=== PATIENT | male | born 1950 | race Caucasian/White ===

== ENCOUNTER 2019-08-09 06:00 | Day surgery (SDC) | payer MEDICARE ==
[2019-08-09] MEDS ORDERED: TROP 1%/CYCLOPEN 1%/PHENYL 2% DROPS ONE (10:40)
[2019-08-09] MEDS ORDERED: PROPARACAINE 0.5% OPHTH SOL 15 ML BTTL ONE (10:40)
[2019-08-09] MEDS ORDERED: MIDAZOLAM INJ 2 MG/2 ML VIAL ONE (11:33)
[2019-08-09] MEDS ORDERED: LIDOCAINE 1% MPF 2 ML VIAL INJ ONE (11:44)
[2019-08-09] MEDS ORDERED: fentaNYL CITRATE INJ 50 MCG/ML AMP ONE (11:50)
[2019-08-09] MEDS ORDERED: PROPOFOL 200 MG/20 ML VIAL IV ONE (11:54)
[2019-08-09] MEDS ORDERED: TOBRAMYCIN SULF 0.3 % OPHT SOL 1 DROP RIGHT_EYE ONE (12:04)
[2019-08-09] MEDS ORDERED: DEXAMETHASONE 0.1% OPHTH SOL 1 DROP RIGHT_EYE ONE (12:04)
[2019-08-09] MEDS ORDERED: BRIMONIDINE 0.2% OPHTH DROPS RIGHT_EYE ONE (12:04)
[2019-08-09] MEDS ORDERED: MOXIFLOXACIN HCL (OPHTH) 1 DROP DROPS RIGHT_EYE ONE (12:04)
== END 2019-08-09 12:55 | disposition home or self-care (01) ==
LOC: AMB 06:00
PROVIDERS: ATTEND Ophthalmology
DX: H25.11 Age-related nuclear cataract, right eye (principal)
CPT/HCPCS: 00142; 66984; J2250; J3010; J3490

== ENCOUNTER 2019-08-23 05:31 | Day surgery (SDC) | payer MEDICARE ==
[2019-08-23] MEDS ORDERED: TROP 1%/CYCLOPEN 1%/PHENYL 2% DROPS ONE (05:49)
[2019-08-23] MEDS ORDERED: PROPARACAINE 0.5% OPHTH SOL 15 ML BTTL ONE (05:49)
[2019-08-23] MEDS ORDERED: MOXIFLOXACIN HCL (OPHTH) 1 DROP DROPS ONE (05:49)
[2019-08-23] MEDS ORDERED: MIDAZOLAM INJ 2 MG/2 ML VIAL ONE (06:44)
[2019-08-23] MEDS ORDERED: PROPOFOL 200 MG/20 ML VIAL IV ONE (07:02)
[2019-08-23] MEDS ORDERED: PROPARACAINE 0.5% OPHTH SOL 15 ML BTTL LEFT_EYE ONE (07:07)
[2019-08-23] MEDS ORDERED: LIDOCAINE 1% MPF 2 ML VIAL INJ ONE (07:21)
[2019-08-23] MEDS ORDERED: MOXIFLOXACIN HCL (OPHTH) 1 DROP DROPS LEFT_EYE ONE ×2 (07:23→07:39)
[2019-08-23] MEDS ORDERED: DEXAMETHASONE 0.1% OPHTH SOL 1 DROP LEFT_EYE ONE ×2 (07:24→07:39)
[2019-08-23] MEDS ORDERED: BRIMONIDINE 0.2% OPHTH DROPS LEFT_EYE ONE ×2 (07:25→07:39)
[2019-08-23] MEDS ORDERED: TOBRAMYCIN SULF 0.3 % OPHT SOL 1 DROP LEFT_EYE ONE ×2 (07:25→07:39)
== END 2019-08-23 08:38 | disposition home or self-care (01) ==
LOC: AMB 05:31
PROVIDERS: ATTEND Ophthalmology
DX: H25.12 Age-related nuclear cataract, left eye (principal)
CPT/HCPCS: 00142; 66984; J2250; J3490

== ENCOUNTER 2020-03-20 10:57 | Emergency (ER) | payer MEDICARE ==
[2020-03-20] MEDS ORDERED: ONDANSETRON INJ 4 MG/2 ML VIAL IV ONE (11:15)
[2020-03-20] MEDS ORDERED: ASPIRIN TABLET 325 MG TAB PO ONE (11:15)
[2020-03-20] MEDS ORDERED: SODIUM CHLORIDE 0.9% (FLUSH) 10 ML SYG IV PRN (11:15)
[2020-03-20 11:35] VITALS: TEMP 98
--- NOTE | 2020-03-20 11:36 | RAD ---
EXAM DESCRIPTION: Chest,1 View CLINICAL HISTORY: 69 years Male, chest pain COMPARISON: Previous chest x-ray March 01, 2019 TECHNIQUE: AP portable chest. FINDINGS: Heart size is normal with normal pulmonary vascularity. Emphysematous hyperexpansion of the upper lobes. Otherwise no consolidating infiltrate. No pulmonary mass or worrisome nodule. No pneumothorax or pleural effusion. Spurring in the T-spine. Bones are otherwise unremarkable. IMPRESSION: No acute process is identified in the chest. Electronically signed by: Phoenix Swift MD 03/20/2020 11:35 AM CDT
--- NOTE | 2020-03-20 12:14 | ED.PDOC ---
History of Present Illness - General Chief Complaint: Chest Pain/WI Stated Complaint: chest pain last night Time Seen by Provider: 03/20/20 11:15 Source: patient, RN notes reviewed, Vital Signs reviewed Exam Limitations: no limitations - History of Present Illness Initial Comments: This is a 69-year-old male with history of rheumatic heart disease presenting to the emergency department with episode of chest pain that began last night around 1700. He states he was sitting in a recliner and had severe retrosternal chest pain that radiated to his back into bilateral arms. The pain lasted approximately 15 to 20 minutes and had 3 waves of severe pain, and then resolve spontaneously. No previous history of ACS/WI. Has never been to the [employer] [facility] or had stents placed. He states he had a similar episode of pain 3 weeks ago that also resolved spontaneously. 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 He denies any chest pain with walking, but states for the past several years he has had some exertional dyspnea, although this has not changed over the past several weeks. No recent travel, no sick contacts, no COVID-19 contacts, no cough or fever. Allergies/Adverse Reactions: Allergies NO KNOWN ALLERGY Allergy (Verified 03/20/20 11:24) Home Medications: Ambulatory Orders Cetirizine HCl [Zyrtec Allergy] 10 mg PO PRN 08/23/19 Naproxen Sodium [Aleve] 220 mg PO PRN 08/23/19 Review of Systems - Review of Systems Constitutional: Denies: fever, weakness EENTM: Denies: ear pain, nose congestion, throat pain Respiratory: States: short of breath. Denies: cough, orthopnea, stridor, wheezing Cardiology: States: chest pain. Denies: edema, palpitations, syncope Gastrointestinal/Abdominal: Denies: abdominal pain, constipation, diarrhea, nausea, vomiting Genitourinary: Denies: dysuria, hematuria Musculoskeletal: Denies: back pain, joint pain, muscle stiffness, neck pain Skin: Denies: change in color, dryness, lesions, rash Neurological: Denies: headache, paresthesia, seizure Endocrine: States: no symptoms reported Hematologic/Lymphatic: States: no symptoms reported Past Medical History (General) - Patient Medical History Hx Congestive Heart Failure: No Hx Diabetes: No Hx MRSA: No - Vaccination History Hx Tetanus, Diphtheria Vaccination: No Hx Influenza Vaccination: No Hx Pneumococcal Vaccination: No - Activities of Daily Living Hospice Agency (if applicable):: None - Female History Patient is a Female of Child Bearing Age (10 -59 yrs old): No - Triage Comment ED Triage Comment: pt voices he had an episode of chest pain last night that resolved after 30 minutes and voices that his doctor urged him to come be seen this morning. pt denies any active chest pain at this time. skin color appears pink, no diaphoresis. all peripheral pulses present and palpable. Family Medical History - Family History Mother Living Status: Physical Exam - Physical Exam General Appearance: Alert, Comfortable, No apparent distress Eyes, Ears, Nose, Throat Exam: PERRL/EOMI, normal ENT inspection, TMs normal Neck: full range of motion, supple, normal inspection Respiratory: chest non-tender, lungs clear, normal breath sounds, no respiratory distress, no accessory muscle use Cardiovascular/Chest: normal peripheral pulses, no edema, no gallop, no JVD, systolic murmur, extra beats Peripheral Pulses: radial,right: 2+, radial,left: 2+, dorsalis pedis,right: 2+, dorsalis pedis,left: 2+ Gastrointestinal/Abdominal: non tender, soft Extremity: normal range of motion, non-tender, normal inspection Neurologic: no motor/sensory deficits, alert, normal mood/affect, oriented x 3 Skin Exam: normal color, warm/dry Progress - Progress Progress: 03/20/20 11:58 Rechecked. Remains pain free. Discussed elevated troponin and need for transfer. Pt and agree with plan. 03/20/20 12:[address] Nolasco at [facility] ED. Will accept as transfer. DDX: ACS/WI, GERD, CHF, low suspicion for aortic dissection MDM: Patient presenting with retrosternal chest pain radiating to the back and arms, single episode yesterday lasting approximately 15 minutes. EKG with T wave inversions in the inferior and lateral leads and frequent PVCs. No previous EKGs for comparison. Troponin is elevated at 0.11, concern for NSTEMI. Patient is pain-free with reassuring vital signs at this time. He was given aspirin in the emergency department, will give Lovenox prior to transfer. There is no cardiology available at this facility, so he will need to be transferred to a facility with cardiology. Patient requested [facility] in [place] DO Smita Nelson #[id number] 03/20/20 12:28 - Results/Orders Results/Orders: EKG interpreted by me at 1101. Sinus rhythm with first-degree AV block and frequent PVCs. Rate of 71. Normal axis, T wave inversions in the inferior and lateral leads, no ST segment elevations or depressions 03/20/20 11:15 Sodium Chloride 0.9% (Flush) [Saline Flush Syringe] 10 ml IV PRN PRN 03/20/20 11:16 IV Care:Saline Lock per Protoc QSHIFT Telemetry .ONCE EKG Stat Pulse Ox Stat Laboratory Results - last 24 hr 03/20/20 03/20/20 03/20/20 11:15 11:15 11:15 WBC 6.6 RBC 5.94 Hgb 17.5 Hct 52.3 H MCV 88.0 MCH 29.4 MCHC 33.5 RDW 14.1 Plt Count 180 MPV 7.5 Absolute Neuts (auto) 4.20 Absolute Lymphs (auto) 1.40 Absolute Monos (auto) 0.70 Absolute Eos (auto) 0.20 Absolute Basos (auto) 0.00 Neutrophils % 64.0 Lymphocytes % 21.3 Monocytes % 10.8 H Eosinophils % 3.1 Basophils % 0.8 Sodium 138 Potassium 4.0 Chloride 106 Carbon Dioxide 24 Anion Gap 12.0 BUN 21 H Creatinine 0.97 BUN/Creatinine Ratio 21.6 H Random Glucose 110 H Serum Osmolality 279.3 Calcium 8.5 Total Bilirubin 0.9 AST 26 ALT 26 Alkaline Phosphatase 65 Troponin I 0.11 H* B-Natriuretic Peptide Serum Total Protein 7.1 Albumin 3.7 Globulin 3.4 Albumin/Globulin Ratio 1.1 03/20/20 11:15 WBC RBC Hgb Hct MCV MCH MCHC RDW Plt Count MPV Absolute Neuts (auto) Absolute Lymphs (auto) Absolute Monos (auto) Absolute Eos (auto) Absolute Basos (auto) Neutrophils % Lymphocytes % Monocytes % Eosinophils % Basophils % Sodium Potassium Chloride Carbon Dioxide Anion Gap BUN Creatinine BUN/Creatinine Ratio Random Glucose Serum Osmolality Calcium Total Bilirubin AST ALT Alkaline Phosphatase Troponin I B-Natriuretic Peptide 110.0 H Serum Total Protein Albumin Globulin Albumin/Globulin Ratio EXAM DESCRIPTION: Chest,1 View CLINICAL HISTORY: 69 years Male, chest pain COMPARISON: Previous chest x-ray March 01, 2019 TECHNIQUE: AP portable chest. FINDINGS: Heart size is normal with normal pulmonary vascularity. Emphysematous hyperexpansion of the upper lobes. Otherwise no consolidating infiltrate. No pulmonary mass or worrisome nodule. No pneumothorax or pleural effusion. Spurring in the T-spine. Bones are otherwise unremarkable. IMPRESSION: No acute process is identified in the chest. Electronically signed by: Phoenix Swift MD 03/20/2020 11:35 Departure - Departure Clinical Impression: Acute chest pain, NSTEMI (non-ST elevated myocardial infarction), Abnormal electrocardiogram [ECG] [EKG] Time of Disposition: 12:20 Disposition: Transfer to Hospital Condition: Fair Departure Forms: ED Discharge - Pt. Copy, Patient Portal Self Enrollment Instructions: DI for Chest Pain Referrals: Eduardo Cheek MD [Primary Care Provider] - 1-2 Weeks Home Medications: Ambulatory Orders Cetirizine HCl [Zyrtec Allergy] 10 mg PO PRN 08/23/19 Naproxen Sodium [Aleve] 220 mg PO PRN 08/23/19
[2020-03-20] MEDS ORDERED: ENOXAPARIN SODIUM 30 MG/0.3 ML SYG SUBCU ONE (12:22)
[2020-03-20] MEDS ORDERED: ENOXAPARIN SODIUM 100 MG/ML SYG SUBCU ONE (12:22)
[2020-03-20 12:26] VITALS: BP 147/76; O2SAT 95
== END 2020-03-20 12:55 | disposition short-term general hospital (02) ==
LOC: ER 10:57
DX: I21.4 Non-ST elevation (NSTEMI) myocardial infarction (principal); R94.31 Abnormal electrocardiogram [ECG] [EKG]; I44.0 Atrioventricular block, first degree; I49.3 Ventricular premature depolarization
CPT/HCPCS: 36415; 71045; 80053; 83880; 84484; 85025; 93005; J1650; J2405

== ENCOUNTER 2020-03-27 08:41 | Emergency (ER) | payer MEDICARE ==
--- NOTE | 2020-03-27 09:54 | ED.PDOC ---
History of Present Illness - General Chief Complaint: Post Op Problems Stated Complaint: R groin hematoma - post heart cath Time Seen by Provider: 03/27/20 09:51 Source: patient, RN notes reviewed, Vital Signs reviewed, family - Exam Limitations: no limitations - History of Present Illness Initial Comments: Patient is a 69-year-old white male who presents status post cardiac cath with complaints of a right groin knot. He states that the knot was much larger last night and was tender and fluctuant. Today it is smaller, hard and more tender. Patient states that the pain is worsened significantly. Is moderate in intensity. Is located in the right groin. Pain is worse with palpation. Is better with rest. It is nonradiating. Timing/Duration: 24 hours, changing over time Severity: moderate Improving Factors: rest Worsening Factors: movement, other - Palpation Associated Symptoms: denies symptoms Allergies/Adverse Reactions: Allergies NO KNOWN ALLERGY Allergy (Verified 03/27/20 09:09) Home Medications: Ambulatory Orders Amiodarone HCl 200 mg PO DAILY 03/27/20 Aspirin [Aspirin Adult Low Dose] 81 mg PO DAILY 03/27/20 Atorvastatin Calcium [Lipitor] 40 mg PO DAILY 03/27/20 Carvedilol 3.125 mg PO DAILY 03/27/20 Cetirizine HCl [ZyrTEC] 10 mg PO DAILY 03/27/20 Lisinopril 5 mg PO DAILY 03/27/20 Review of Systems - Review of Systems Constitutional: States: no symptoms reported, see HPI. Denies: chills, fever, malaise EENTM: States: no symptoms reported Respiratory: States: no symptoms reported. Denies: cough, short of breath, stridor Cardiology: States: see HPI, edema - Right groin. Denies: chest pain, palpitations, syncope Gastrointestinal/Abdominal: States: see HPI. Denies: abdominal pain, nausea, vomiting Genitourinary: States: no symptoms reported. Denies: dysuria, frequency Musculoskeletal: States: see HPI, other - Right groin pain with hematoma. Skin: States: see HPI, change in color - Right groin with bruising., lumps - Lump in the right groin that is hard, tender to palpation. Neurological: States: no symptoms reported. Denies: numbness, tingling Endocrine: States: no symptoms reported Hematologic/Lymphatic: States: no symptoms reported All other Systems: No Change from Baseline Past Medical History (General) - Patient Medical History Hx Congestive Heart Failure: No Hx Hypertension: Yes Hx Diabetes: No Hx MRSA: No Surgical History: appendectomy - Vaccination History Hx Tetanus, Diphtheria Vaccination: No Hx Influenza Vaccination: No Hx Pneumococcal Vaccination: No - Social History Hx Alcohol Use: No - Activities of Daily Living Hospice Agency (if applicable):: None - Female History Patient is a Female of Child Bearing Age (10 -59 yrs old): No - Triage Comment ED Triage Comment: pt voices " I have a knot where they went in for my heart cath" pt voices that it has decreased in size about half what it was last night. Quarter size knot to right groin noted during palpation. no oozing or bleeding noted from access site. RLE pulses pt voices pain and grimmacing during palpation. Family Medical History - Family History Mother Living Status: Physical Exam - Physical Exam General Appearance: Alert, Anxious, Well Developed, Well Groomed, Well Hydrated, Well Nourished Eye Exam: bilateral normal Ears, Nose, Throat: hearing grossly normal, normal ENT inspection, normal pharynx Neck: non-tender, full range of motion, supple, normal inspection Respiratory: chest non-tender, lungs clear, normal breath sounds, no respiratory distress Cardiovascular/Chest: normal peripheral pulses, regular rate, rhythm, no edema, no gallop, no JVD, no murmur Peripheral Pulses: radial,right: 2+, radial,left: 2+, dorsalis pedis,right: 2+, dorsalis pedis,left: 2+ Gastrointestinal/Abdominal: normal bowel sounds, non tender, soft Back Exam: normal inspection, no CVA tenderness, no vertebral tenderness Extremity: normal range of motion, other - Swelling in the right groin with a hematoma that is hard and nodular. There is no thrombus felt. There is no murmur at the site. 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 Lymphatic: no adenopathy Progress - Progress Progress: Differential diagnosis: Hematoma, AV fistula, cellulitis, abscess among others. 05/25/20 09:58 I have discussed the hematoma at the groin site. The patient and his are quite concerned. I believe it is probably just a hematoma but I do not have ultrasound available to rule out an AV fistula. Will discharge patient to follow-up at [facility] for an ultrasound. I have discussed this matter with the patient and his and they voiced understanding and agreement with the plan of care. I have discussed this with Dr. Alfonso, at [facility], and he accepts the patient for further evaluation. Jesus Clarke M.D. #[id number] Departure - Departure Clinical Impression: Groin hematoma Qualifiers: Encounter type: initial encounter Qualified Code(s): S30.1XXA - Contusion of abdominal wall, initial encounter Postoperative hemorrhage Qualifiers: Surgical complication system/body Area: skin Procedure type: non-dermatologic Qualified Code(s): L76.22 - Postprocedural hemorrhage of skin and subcutaneous tissue following other procedure Time of Disposition: 10:00 - \\ Disposition: Transfer to Hospital Condition: Good Departure Forms: ED Discharge - Pt. Copy, Patient Portal Self Enrollment Instructions: DI for Post-Surgical Bleeding, Contusion (DC) Diet: resume usual diet Activity: increase activity as tolerated Referrals: Eduardo Cheek MD [Primary Care Provider] - 1-5 Days Home Medications: Ambulatory Orders Amiodarone HCl 200 mg PO DAILY 03/27/20 Aspirin [Aspirin Adult Low Dose] 81 mg PO DAILY 03/27/20 Atorvastatin Calcium [Lipitor] 40 mg PO DAILY 03/27/20 Carvedilol 3.125 mg PO DAILY 03/27/20 Cetirizine HCl [ZyrTEC] 10 mg PO DAILY 03/27/20 Lisinopril 5 mg PO DAILY 03/27/20
== END 2020-03-27 10:00 | disposition short-term general hospital (02) ==
LOC: ER 08:41
DX: L76.32 Postprocedural hematoma of skin and subcutaneous tissue following other procedure (principal); S30.1XXA Contusion of abdominal wall, initial encounter; I10 Essential (primary) hypertension; Z79.899 Other long term (current) drug therapy; Z79.82 Long term (current) use of aspirin; Y84.0 Cardiac catheterization as the cause of abnormal reaction of the patient, or of later complication, without mention of misadventure at the time of the procedure; Y92.9 Unspecified place or not applicable